=== PATIENT | female | born 1965 | race Two or more races ===

== ENCOUNTER 2023-03-02 21:01 | Emergency (ER) | payer BC, OTHER ==
[~2023-03-02] VITALS: Ht 157.5 cm; Wt 78.0 kg
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
[2023-03-02] MEDS ORDERED: NAPR-1009 PO (22:22)
[2023-03-02] MEDS ORDERED: KETOROLAC TROMETHAMINE INJ 60 MG/2 ML VIAL IM ONE (22:30)
[2023-03-02] MEDS ORDERED: KETOROLAC TROMETHAMINE INJ 30 MG/ML VIAL ONE (22:50)
[2023-03-02 23:08] VITALS: BP 131/70
--- NOTE | 2023-03-02 23:08 | NUR ---
Patient discharged to home in stable condition. Written and verbal after care instructions given. Patient verbalizes understanding of instruction.
== END 2023-03-02 23:09 | disposition home or self-care (01) ==
LOC: ER 21:03
DX: S46.911A Strain of unspecified muscle, fascia and tendon at shoulder and upper arm level, right arm, initial encounter (principal); S20.211A Contusion of right front wall of thorax, initial encounter; E11.65 Type 2 diabetes mellitus with hyperglycemia; M19.011 Primary osteoarthritis, right shoulder; I10 Essential (primary) hypertension; Z79.899 Other long term (current) drug therapy; V89.2XXA Person injured in unspecified motor-vehicle accident, traffic, initial encounter; Y93.89 Activity, other specified; Y92.89 Other specified places as the place of occurrence of the external cause; Y99.8 Other external cause status
CPT/HCPCS: 99284; 96372; 73060; 71100; 73030; J1885